=== PATIENT | female | born 1995 | race Caucasian/White ===

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

== ENCOUNTER 2017-09-30 16:52 | Emergency (ER) | payer BC ==
[2017-09-30 17:01] VITALS: RESP 18; TEMP 97.9
[2017-09-30] MEDS ORDERED: NS 1,000 ML IV ONE (17:07)
--- NOTE | 2017-09-30 17:07 | EDPHY ---
H & P Stated Complaint: CI - Cocaine and ETOH HPI/ROS: HPI CHIEF COMPLAINT: Alcohol Intoxication, Cocaine Intoxication. HISTORY OF PRESENT ILLNESS: This patient is a 21-year-old female she presents emergency room intoxicated with alcohol additionally did multiple rounds of cocaine. She was found in a [place] in [place] intoxicated with alcohol. She was unable to ambulate and vomiting on herself and was brought here to the emergency room for evaluation. Past Medical History: Denies significant medical history except for depression Past Surgical History: Denies surgical history Social History: 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 As well cocaine. Family History: Noncontributory ROS REVIEW OF SYSTEMS: A comprehensive 10 point review of systems is otherwise negative aside from elements mentioned in the history of present illness. Exam Constitutional Intoxicated, triage nursing summary reviewed, vital signs reviewed, Sleepy, smells of alcohol Eyes normal conjunctivae and sclera, horizontal beating nystagmus consistent acute alcohol intoxication, otherwise pupils equal and react to light HENT normal inspection, atraumatic, moist mucus membranes, no epistaxis, neck supple/ no meningismus, no raccoon eyes. Respiratory clear to auscultation bilaterally, normal breath sounds, no respiratory distress, no wheezing. Cardiovascular rate normal, regular rhythm, no murmur, no edema, distal pulses normal. Gastrointestinal soft, non-tender, no rebound, no guarding, normal bowel sounds, no distension, no pulsatile mass. Genitourinary no CVA tenderness. Musculoskeletal no midline vertebral tenderness, full range of motion, no calf swelling, no tenderness of extremities, no meningismus, good pulses, neurovascularly intact. Skin pink, warm, & dry, no rash, skin atraumatic. Neurologic sleepy, intoxicated with alcohol,, alert and oriented x 3, AAOx3, moves all 4 extremities equally, motor intact, sensory intact, CN II-XII intact , , normal vision, normal speech. Psychiatric normal mood/affect. Heme/Lymph/Immune no lymphadenopathy. Differential Diagnosis: Includes but is not limited to in a particular order acute alcohol intoxication, alcohol abuse, dehydration, electrolyte abnormality , nausea vomiting from acute alcohol intoxication Medical Decision Making: Plan for this patient IV establishment IV fluid bolus 1 L normal saline, 4 mg IV Zofran, check serum alcohol level. Drug screen. Re- evaluate. Check electrolytes. Monitor for worsening of condition. Monitor for sobriety. Re-evaluation: 2011: Serum alcohol level over 406. 2018: Mom here bedside. Went over patient's test results. Recommend for her to refrain from drinking alcohol. Given that she is 21 years of age this is her 2nd ER visit. Alcohol level is over 400. I explained how dangerous this is. Recommend refrain from drinking alcohol. 2019: She is now stable. She ambulates well. She is now sober. Mom would like to take her home. I have answered all their questions. She understands return emergency room if there is worsening symptoms questions or concerns. Source: Patient, EMS - Personal History LMP (Females 10-55): IUD In Place Current Tetanus/Diphtheria Vaccine: Unsure Current Tetanus Diphtheria and Acellular Pertussis (TDAP): Unsure - Medical/Surgical History Hx Asthma: No Hx Chronic Respiratory Disease: No Hx Diabetes: No Hx Cardiac Disease: No Hx Renal Disease: No Hx Cirrhosis: No Hx Alcoholism: No Hx HIV/AIDS: No Hx Splenectomy or Spleen Trauma: No Other PMH: Cocaine and ETOH, Depression - Social History Smoking Status: Never smoked Constitutional: Initial Vital Signs Temperature (C) 36.6 C 09/30/17 16:59 Heart Rate 71 09/30/17 16:59 Respiratory Rate 18 09/30/17 16:59 Blood Pressure 131/97 H 09/30/17 16:59 O2 Sat (%) 94 09/30/17 16:59 O2 Delivery Mode Room Air Allergies/Adverse Reactions: amoxicillin Allergy (Verified 09/30/16 23:44) Home Medications: Medication Instructions Recorded Lexapro 09/30/17 Medical Decision Making - Data Points Laboratory Results: Laboratory Results 09/30/17 16:55 09/30/17 16:55 09/30/17 09/30/17 16:55 16:55 WBC 8.52 10^3/uL 10^3/uL (3.80-9.50) RBC 4.81 10^6/uL 10^6/uL (4.18-5.33) Hgb 15.7 g/dL g/dL (12.6-16.3) Hct 43.6 % % (38.0-47.0) MCV 90.6 fL fL (81.5-99.8) MCH 32.6 pg pg (27.9-34.1) MCHC 36.0 g/dL g/dL (32.4-36.7) RDW 13.4 % % (11.5-15.2) Plt Count 241 10^3/uL 10^3/uL (150-400) MPV 11.7 fL fL (8.7-11.7) Neut % (Auto) 58.5 % % (39.3-74.2) Lymph % (Auto) 29.5 % % (15.0-45.0) [place] % (Auto) 9.9 % % (4.5-13.0) Eos % (Auto) 0.5 % L % (0.6-7.6) Baso % (Auto) 0.9 % % (0.3-1.7) Nucleat RBC Rel Count 0.0 % % (0.0-0.2) Absolute Neuts (auto) 4.99 10^3/uL 10^3/uL (1.70-6.50) Absolute Lymphs (auto) 2.51 10^3/uL 10^3/uL (1.00-3.00) Absolute Monos (auto) 0.84 10^3/uL H 10^3/uL (0.30-0.80) Absolute Eos (auto) 0.04 10^3/uL 10^3/uL (0.03-0.40) Absolute Basos (auto) 0.08 10^3/uL 10^3/uL (0.02-0.10) Absolute Nucleated RBC 0.00 10^3/uL 10^3/uL (0-0.01) Immature Gran % 0.7 % % (0.0-1.1) Immature Gran # 0.06 10^3/uL 10^3/uL (0.00-0.10) Sodium 146 mEq/L H mEq/L (135-145) Potassium 3.5 mEq/L mEq/L (3.5-5.2) Chloride 108 mEq/L mEq/L (97-110) Carbon Dioxide 18 mEq/l L mEq/l (22-31) Anion Gap 20 mEq/L H mEq/L (8-16) BUN 11 mg/dL mg/dL (7-23) Creatinine 0.9 mg/dL mg/dL (0.6-1.0) Estimated GFR > 60 Glucose 96 mg/dL mg/dL (70-100) Calcium 9.2 mg/dL mg/dL (8.5-10.4) Ethyl Alcohol 406 mg/dL H* mg/dL (0-10) Medications Given: Discontinued Medications Sodium Chloride (Ns) 1,000 mls @ 0 mls/hr IV EDNOW ONE; Wide Open PRN Reason: Protocol Stop: 09/30/17 17:08 Last Admin: 09/30/17 18:13 Dose: 1,000 mls Departure - Departure Disposition: Home, Routine, Self-Care Clinical Impression: Cocaine abuse Alcoholic intoxication Qualifiers: Complication of substance-induced condition: uncomplicated Qualified Code(s): F10.920 - Alcohol use, unspecified with intoxication, uncomplicated Condition: Good Instructions: Cocaine Abuse (ED), Alcohol Intoxication (ED) Referrals: Patient,NotPresent [Unknown] - As per Instructions
[2017-09-30 17:13] LABS: PLATELET COUNT 241 10^3/uL (150-400)
[2017-09-30 20:53] VITALS: BP 154/104; PULSE 98; O2SAT 96
== END 2017-09-30 20:53 | disposition home or self-care (01) ==
LOC: EDUNIT#
DX: F10.920 Alcohol use, unspecified with intoxication, uncomplicated (principal); F14.10 Cocaine abuse, uncomplicated; E86.9 Volume depletion, unspecified
CPT/HCPCS: 80305; G0480

== ENCOUNTER → 2017-11-28 | Outpatient (CLI) | payer BC | LOC: BMCIMAGING 11:00 | PROVIDERS: ATTEND Family Medicine | DX: S99.912A Unspecified injury of left ankle, initial encounter (principal); W10.8XXA Fall (on) (from) other stairs and steps, initial encounter ==

== ENCOUNTER 2018-01-03 21:36 | Emergency (ER) | payer BC ==
[2018-01-03] MEDS ORDERED: methylPREDNISolone SOD SUCC 125 MG/2 ML VIAL IVP ONE (22:06)
--- NOTE | 2018-01-03 22:06 | EDPHY ---
H & P Stated Complaint: ALLERGIC REACTION TO ? THING. SOB TONGUE AND MOUTH , STARTED ON ABX TODAY Time Seen by Provider: 01/03/18 21:50 HPI/ROS: Chief Complaint: Allergic reaction HPI: 22-year-old woman started having face and throat swelling at about 7 o' clock this afternoon. Patient states this occurred about an hour and half after she took a Bactrim tablet for a recently diagnosed UTI at urgent care today. Patient noticed that her lower lip became significantly swollen and has a sensation of fullness in her throat. She took 2 tablets of Benadryl over the course of an hour and half. Symptoms are not improving but they are not worsening. Has not had any rash. No prior episodes of allergy to Bactrim in the past. Has been told that is a charge is allergic to amoxicillin but that resulted in hives. Has been having recent urgency and frequency and had a positive urinalysis at Urgent Care today. No shortness of breath. No cough. No itching. ROS: 10 point Review of Systems is negative except as noted in the HPI. PMH: Attention deficit hyperactivity disorder Social History: No smoking, occasional alcohol, no recreational drug use Family History: non-contributory Physical Exam: Gen: Awake, Alert, No Distress HEENT: Ears are normal bilaterally. Nose: no rhinorrhea Eyes: PERRLA, EOMI Mouth: Moist mucosa moderate angioedema which is symmetrical in her lower lip. Oropharynx shows no uvular edema, asymmetry, erythema or peritonsillar edema. Neck: Supple, no JVD Chest: nontender, lungs clear to auscultation Heart: S1, S2 normal, no murmur Abd: Soft, non-tender, no guarding Back: no CVA tenderness, no midline tenderness Ext: no edema, non-tender Skin: no rash Neuro: CN II-XII intact, Sensation grossly intact, Strength 5/5 in bilateral upper and lower extremities - Personal History LMP (Females 10-55): IUD In Place Current Tetanus/Diphtheria Vaccine: Yes Current Tetanus Diphtheria and Acellular Pertussis (TDAP): Yes - Medical/Surgical History Hx Asthma: No Hx Chronic Respiratory Disease: No Hx Diabetes: No Hx Cardiac Disease: No Hx Renal Disease: No Hx Cirrhosis: No Hx Alcoholism: No Hx HIV/AIDS: No Hx Splenectomy or Spleen Trauma: No Other PMH: Cocaine and ETOH, Depression, ADD, - Social History Smoking Status: Never smoked Constitutional: Initial Vital Signs Temperature (C) 37.5 C 01/03/18 21:38 Heart Rate 110 H 01/03/18 21:38 Respiratory Rate 18 01/03/18 21:38 Blood Pressure 134/87 H 01/03/18 21:38 O2 Sat (%) 98 01/03/18 21:38 O2 Delivery Mode Room Air Allergies/Adverse Reactions: amoxicillin Allergy (Verified 01/03/18 21:41) Home Medications: Medication Instructions Recorded Nitrofurantoin Monohyd/M-Cryst 100 mg PO BID #10 capsule 01/03/18 [Macrobid 100 mg Capsule] Sulfamethox/Tmp 800/160 mg 01/03/18 [Bactrim DS] Medical Decision Making ED Course/Re-evaluation: Patient is feeling improved. No significant change in her symptoms. No airway involvement. Some mild lower lip angioedema. There has been no twisting frame changer the last several hours. Will discharge with instructions to discontinue the Bactrim. Will start her on nitrofurantoin. She will follow up with primary care physician tomorrow with whom she already has an appointment. She needs to arrange outpatient allergy testing. - Data Points Medications Given: Discontinued Medications Methylprednisolone Sodium Succinate (Solu-Medrol) 125 mg IVP EDNOW ONE Stop: 01/03/18 22:07 Last Admin: 01/03/18 22:09 Dose: 125 mg Departure - Departure Disposition: Home, Routine, Self-Care Clinical Impression: Allergic reaction Condition: Good Instructions: General Allergic Reaction (ED) Additional Instructions: Stop taking the Bactrim and discard the medication. You may take Benadryl, 50 mg, every 4-6 hours for the next 12 hr. Start taking nitrofurantoin tomorrow morning to treat her urinary tract infection. Follow up with primary care physician as scheduled tomorrow for further evaluation and to arrange outpatient allergy testing. Referrals: ELIZABETH DURAND [Other] - As per Instructions Prescriptions: Nitrofurantoin Monohyd/M-Cryst [Macrobid 100 mg Capsule] 100 mg PO BID #10 capsule
[2018-01-03 23:16] VITALS: BP 112/72
== END 2018-01-03 23:16 | disposition home or self-care (01) ==
DX: R22.0 Localized swelling, mass and lump, head (principal); T36.8X5A Adverse effect of other systemic antibiotics, initial encounter
CPT/HCPCS: 96374; J2930

== ENCOUNTER 2018-08-25 19:00 | Emergency (ER) | payer BC ==
[2018-08-25] MEDS ORDERED: NS 1,000 ML IV ONE (19:46)
--- NOTE | 2018-08-25 20:01 | EDPHY ---
H & P Stated Complaint: SZ vs syncopal post MJ use Time Seen by Provider: 08/25/18 19:59 HPI/ROS: CHIEF COMPLAINT: Syncope after smoking marijuana HISTORY OF PRESENT ILLNESS: The patient presents to the ED after a vasovagal episode that occurred while smoking marijuana. The patient reportedly smoked from her friends "vape" and upon exhaling developed symptoms of lightheadedness , blurry vision and ultimately experienced fairly typical observed vasovagal syncope. There is no tonic-clonic seizure activity observed. There is no incontinence or tongue bite. The patient did not fall or sustain trauma. She has no history of seizure disorder. The patient denies any acute complaints currently. REVIEW OF SYSTEMS: A comprehensive 10 point review of systems is otherwise negative aside from elements mentioned in the history of present illness. Source: Patient - Personal History LMP (Females 10-55): IUD In Place Current Tetanus/Diphtheria Vaccine: Yes - Medical/Surgical History Hx Asthma: No Hx Chronic Respiratory Disease: No Hx Diabetes: No Hx Cardiac Disease: No Hx Renal Disease: No Hx Cirrhosis: No Hx Alcoholism: No Hx HIV/AIDS: No Hx Splenectomy or Spleen Trauma: No Other PMH: Cocaine and ETOH, Depression, ADD,. sleep apnea - Social History Smoking Status: Never smoked - Physical Exam Exam: General Appearance: Alert, no distress Eyes: Pupils equal and round no pallor or injection ENT, Mouth: Mucous membranes moist, no tongue bite Respiratory: There are no retractions, lungs are clear to auscultation Cardiovascular: Regular rate and rhythm Gastrointestinal: Abdomen is soft and nontender, no masses, bowel sounds normal Neurological: A&O, normal motor function, normal sensory exam, normal cranial nerves Skin: Warm and dry, no rashes Musculoskeletal: Neck is supple nontender Extremities: symmetrical, full range of motion Constitutional: Initial Vital Signs Temperature (C) 36.6 C 08/25/18 19:07 Heart Rate 72 08/25/18 19:07 Respiratory Rate 18 08/25/18 19:07 Blood Pressure 99/63 L 08/25/18 19:07 O2 Sat (%) 98 08/25/18 19:07 O2 Delivery Mode Room Air Allergies/Adverse Reactions: amoxicillin Allergy (Verified 01/03/18 21:41) Sulfa (Sulfonamide Antibiotics) Allergy (Verified 08/25/18 19:10) Home Medications: Medication Instructions Recorded Amphetamine Salts 20 mg Tablet 08/25/18 Medical Decision Making - Diagnostics EKG Interpretation: EKG: Complete interpretation has been separately recorded in the [employer] archive. Summary impression: Sinus rhythm, rate 67 ED Course/Re-evaluation: Patient presents to the ED after a likely vasovagal episode. The patient is neurologically intact upon arrival. The patient's EKG demonstrates no evidence of ischemia. I hear no murmur on exam. The patient had an IV established. She received a L of normal saline. Laboratory studies demonstrate no evidence of a acidosis. test is normal. CBC is normal. Patient underwent serial examinations in the ED over a 2 hr period without any recurrent seizure activity. The patient has been informed that I feel the etiology of her presentation today is a vasovagal episode. Clearly should she developed recurrent symptoms, seizure, neurologic symptoms, headache, chest pain, difficulty breathing or other concerns she should return to the ED. Differential Diagnosis: Differential diagnosis considered includes vasovagal episode, metabolic derangement, anemia, ruptured ectopic , arrhythmia - Data Points Laboratory Results: Laboratory Results 08/25/18 19:29 08/25/18 19:29 08/25/18 08/25/18 08/25/18 19:29 19:29 19:29 WBC 6.10 10^3/uL 10^3/uL (3.80-9.50) RBC 4.86 10^6/uL 10^6/uL (4.18-5.33) Hgb 15.5 g/dL g/dL (12.6-16.3) Hct 46.0 % % (38.0-47.0) MCV 94.7 fL fL (81.5-99.8) MCH 31.9 pg pg (27.9-34.1) MCHC 33.7 g/dL g/dL (32.4-36.7) RDW 12.1 % % (11.5-15.2) Plt Count 188 10^3/uL 10^3/uL (150-400) MPV 12.2 fL H fL (8.7-11.7) Neut % (Auto) 55.0 % % (39.3-74.2) Lymph % (Auto) 31.6 % % (15.0-45.0) [place] % (Auto) 10.0 % % (4.5-13.0) Eos % (Auto) 2.5 % % (0.6-7.6) Baso % (Auto) 0.7 % % (0.3-1.7) Nucleat RBC Rel Count 0.0 % % (0.0-0.2) Absolute Neuts (auto) 3.36 10^3/uL 10^3/uL (1.70-6.50) Absolute Lymphs (auto) 1.93 10^3/uL 10^3/uL (1.00-3.00) Absolute Monos (auto) 0.61 10^3/uL 10^3/uL (0.30-0.80) Absolute Eos (auto) 0.15 10^3/uL 10^3/uL (0.03-0.40) Absolute Basos (auto) 0.04 10^3/uL 10^3/uL (0.02-0.10) Absolute Nucleated RBC 0.00 10^3/uL 10^3/uL (0-0.01) Immature Gran % 0.2 % % (0.0-1.1) Immature Gran # 0.01 10^3/uL 10^3/uL (0.00-0.10) Sodium 138 mEq/L mEq/L (135-145) Potassium 3.9 mEq/L mEq/L (3.5-5.2) Chloride 104 mEq/L mEq/L (97-110) Carbon Dioxide 25 mEq/l mEq/l (22-31) Anion Gap 9 mEq/L mEq/L (6-14) BUN 17 mg/dL mg/dL (7-23) Creatinine 1.2 mg/dL H mg/dL (0.6-1.0) Estimated GFR 57 Glucose 96 mg/dL mg/dL (70-100) Calcium 9.7 mg/dL mg/dL (8.5-10.4) Beta HCG, Qual NEGATIVE Medications Given: Discontinued Medications Sodium Chloride (Ns) 1,000 mls @ 0 mls/hr IV EDNOW ONE; Wide Open PRN Reason: Protocol Stop: 08/25/18 19:47 Last Admin: 08/25/18 19:50 Dose: 1,000 mls Departure - Departure Disposition: Home, Routine, Self-Care Clinical Impression: Vasovagal syncope Condition: Good Instructions: Syncope (ED) Additional Instructions: 1. Please return to the ED for any recurrent passing out, seizure activity, severe headache, numbness, weakness or other concerns. 2. Please follow-up with your primary care provider as scheduled.
[2018-08-25 20:09] LABS: PLATELET COUNT 188 10^3/uL (150-400)
[2018-08-25 20:54] VITALS: BP 128/76
--- NOTE | 2018-08-25 21:14 | CPEKG ---
Test Reason : OPEN Blood Pressure : / mmHG Vent. Rate : 067 BPM Atrial Rate : 068 BPM P-R Int : 167 ms QRS Dur : 101 ms QT Int : 401 ms P-R-T Axes : 059 064 024 degrees QTc Int : 424 ms Sinus rhythm Low voltage, precordial leads Confirmed by Vamsi Saravia ([id number]) on 08/25/2018 9:14:06 PM Referred By: Confirmed By:Vamsi Saravia
== END 2018-08-25 20:54 | disposition home or self-care (01) ==
DX: R55 Syncope and collapse (principal); E86.9 Volume depletion, unspecified